=== PATIENT | male | born 1995 | race Caucasian/White ===

== ENCOUNTER 2024-10-02 12:53 | Inpatient (IN) | payer OTHER ==
[2024-10-02 13:09] VITALS: BMI 26.9
[2024-10-02] MEDS ORDERED: BENZONATATE 200 MG CAPSULE PO PRN (13:55)
[2024-10-02] MEDS ORDERED: ACETAMINOPHEN 325 MG TABLET (FP) PO PRN (13:55)
[2024-10-02] MEDS ORDERED: MAG HYDROX/AL HYDROX/SIMETH 30 ML UNIT-DOSE CUP PO PRN (13:55)
[2024-10-02] MEDS ORDERED: ONDANSETRON *ODT* 4 MG TABLET SL PRN (13:55)
[2024-10-02] MEDS ORDERED: P-EPHED 60MG/TRIPROLIDI 2.5MG TABLET PO PRN (13:55)
[2024-10-02] MEDS ORDERED: POLYETHYLENE GLYCOL (HEALTHYLAX) 3350 17 GM PACKET PO PRN (13:55)
[2024-10-02] MEDS ORDERED: LOPERAMIDE HCL 2 MG CAPSULE PO PRN (13:55)
[2024-10-02] MEDS ORDERED: DICYCLOMINE HCL 10 MG CAPSULE PO PRN (13:55)
[2024-10-02] MEDS ORDERED: BENZOCAINE/MENTHOL (CHLORASEPTIC ) LOZENGE MM PRN (13:55)
[2024-10-02] MEDS ORDERED: BISMUTH SUBSALICYLATE 262 MG/15 ML BTL PO PRN (13:55)
[2024-10-02] MEDS ORDERED: guaiFENesin 600 MG TABLET.ER (FP) PO PRN (13:55)
[2024-10-02] MEDS ORDERED: MAGNESIUM HYDROX 2400MG/30ML ORAL SUSPENSION 30 ML CUP PO PRN (13:55)
[2024-10-02] MEDS ORDERED: NALOXONE (NARCAN) HCL 4 MG/0.1 ML SPRAY NS PRN (13:55)
[2024-10-02] MEDS ORDERED: IBUPROFEN 400 MG TABLET (FP) PO PRN (13:55)
[2024-10-02] MEDS ORDERED: NICOTINE POLACRILEX 2 MG LOZENGE BC PRN (13:55)
[2024-10-02] MEDS: hydrOXYzine PAMOATE 25 MG CAPSULE (FP) PO PRN (22:17)
[2024-10-02] MEDS: MELATONIN 5 MG TABLETS PO SCH (22:17)
[2024-10-02] MEDS: THIAMINE 100 MG TABLET PO SCH (22:17)
[2024-10-02] MEDS: METHOCARBAMOL 500 MG TABLET PO PRN (22:17)
[2024-10-02] MEDS: IBUPROFEN 600 MG TABLET (FP) PO PRN (22:17)
[2024-10-03] MEDS: PRENATAL VITAMINS W/ FOLIC ACID TABLET (FP) PO SCH (09:17)
[2024-10-03 09:24] LABS: MCHC 33.4 g/dl (32.3-36.5); MEAN CELL VOLUME 83.0 fl (79.0-92.2); MEAN PLT VOLUME 9.9 fl (9.4-12.4); RDW 11.9 % (12.0-15.6)
[2024-10-03 10:49] LABS: CO2 25.0 mmol/L (21-32); CREATININE 0.6 mg/dL (0.55-1.3); GLUCOSE,RANDOM 104.0 mg/dL (74-106); SGOT/AST 16.0 U/L (15-37); SGPT/ALT 12.0 U/L (13-61); TOT PROT 7.5 g/dl (6.4-8.2)
[2024-10-03 10:55] LABS: ALK PHOS 71.0 U/L (45-117)
[2024-10-03] MEDS: NICOTINE POLACRILEX 2 MG GUM BUC PRN (22:03)
[2024-10-07 09:20] VITALS: BP 108/78; PULSE 70; RESP 14; TEMP 97.7
== END 2024-10-07 09:23 | disposition home or self-care (01) | DRG 772 ==
LOC: YASAS 12:53 → Y3N 14:26
PROVIDERS: ADMIT Neuromusculoskeletal Medicine & OMM; ATTEND Allergy & Immunology
PROC: HZ42ZZZ Group Counseling for Substance Abuse Treatment, Cognitive-Behavioral (ICD-10-PCS; principal; 2024-10-02)
DX: F11.23 Opioid dependence with withdrawal (principal); F14.20 Cocaine dependence, uncomplicated; F12.20 Cannabis dependence, uncomplicated; F17.210 Nicotine dependence, cigarettes, uncomplicated
CPT/HCPCS: 36415; 80053; 80305; 85027; 86780; 93005; 93010